=== PATIENT | male | born 1990 | race Caucasian/White ===

== ENCOUNTER 2018-06-26 11:27 | Emergency (ER) | payer SELFPAY ==
[~2018-06-26] VITALS: Ht 172.7 cm; Wt 69.0 kg
[2018-06-26] MEDS ORDERED: KETOROLAC 30MG/ML VIAL IV ONE (20:30)
[2018-06-26] MEDS ORDERED: KETOROLAC 60MG/2ML VIAL IM ONE (20:30)
[2018-06-26 21:08] VITALS: BP 123/65
== END 2018-06-26 21:10 | disposition home or self-care (01) ==
LOC: ER 14:24
DX: J06.9 Acute upper respiratory infection, unspecified (principal); Z98.890 Other specified postprocedural states; J18.9 Pneumonia, unspecified organism
CPT/HCPCS: 96372; 99283; J1885